=== PATIENT | female | born 1940 | race Caucasian/White ===

== ENCOUNTER → 2016-12-16 | Outpatient (CLI) | payer MEDICARE, BC, OTHER ==
[~2016-12-16] MED LIST: AMBIEN5 MG PO; AMLOPIDINE; ARAVA; CARVEDILOL; CELLCEPT; LISINOPRIL; TRAMADOL; ZOCOR; [UNRECOGNIZED DRUG - OTHER]
== END ==
LOC: MC.RAD 10:04
DX: Z12.31 Encounter for screening mammogram for malignant neoplasm of breast (principal); N64.89 Other specified disorders of breast

== ENCOUNTER 2018-01-16 10:07 | Day surgery (SDC) | payer MEDICARE, BC, OTHER ==
[2008-10-12 09:13] VITALS: BP 145/63
[~2018-01-16] VITALS: Ht 167.6 cm; Wt 61.7 kg
[2018-01-16 10:28] VITALS: BP 184/84; PULSE 81; TEMP 97.8
[2018-01-16] MEDS ORDERED: NORVASC 10MG10 MG PO (10:30)
[2018-01-16] MEDS ORDERED: ARAVA 20MG TABL20 MG PO (10:31)
[2018-01-16] MEDS ORDERED: COREG 25MG25 MG/TAB PO (10:31)
[2018-01-16] MEDS ORDERED: CELLCEPT 250MG250 MG PO (10:31)
[2018-01-16] MEDS ORDERED: XALATAN EYE DROPS OD (10:32)
[2018-01-16] MEDS ORDERED: SALAGEN 5MG TAB5 MG PO (10:32)
[2018-01-16] MEDS ORDERED: PRINIVIL10 MG PO (10:32)
[2018-01-16] MEDS ORDERED: RESTASIS MULTI5.5 ML OP (10:33)
[2018-01-16] MEDS ORDERED: PROGRAF 1MG1 MG PO (10:33)
[2018-01-16] MEDS ORDERED: ULTRAM 50MG TAB50 MG PO (10:34)
[2018-01-16] MEDS ORDERED: ZOCOR 20MG20 MG PO (10:34)
[2018-01-16] MEDS ORDERED: CRANBERRY500 M3 PO (10:35)
[2018-01-16] MEDS ORDERED: GLUCOSAMINE 1000 PO (10:35)
[2018-01-16] MEDS ORDERED: FLAX OIL1000 MG PO (10:35)
[2018-01-16] MEDS ORDERED: TYLENOL 8 HR PO (10:36)
[2018-01-16] MEDS ORDERED: TYLENOL PM EXTR1 TA1 PO (10:36)
[2018-01-16] MEDS ORDERED: MAGNESIUM250 M1 PO (10:36)
[2018-01-16] MEDS ORDERED: FOSAMAX 70MG TA70 MG PO (10:37)
[2018-01-16] MEDS ORDERED: VITAMIN D 1001000 IU PO (10:37)
[2018-01-16] MEDS ORDERED: NATURAL E400 IU PO (10:37)
[2018-01-16 12:50] VITALS: BP 145/66; PULSE 76
[2018-01-16 13:05] VITALS: BP 171/79; PULSE 79
[2018-01-16 13:20] VITALS: BP 162/83; PULSE 75
[2018-01-16 13:35] VITALS: BP 174/90; PULSE 78
== END 2018-01-16 13:55 | disposition home or self-care (01) ==
LOC: SDCO 10:07
DX: Z12.11 Encounter for screening for malignant neoplasm of colon (principal); K57.30 Diverticulosis of large intestine without perforation or abscess without bleeding; E78.00 Pure hypercholesterolemia, unspecified; I10 Essential (primary) hypertension; Z94.0 Kidney transplant status
CPT/HCPCS: J2250; J3010; J7030

== ENCOUNTER → 2018-01-19 | Outpatient (CLI) | payer MEDICARE, BC, OTHER ==
[~2018-01-19] MED LIST changes: +ARAVA 20MG TABL20 MG PO; +CELLCEPT 250MG250 MG PO; +COREG 25MG25 MG/TAB PO; +CRANBERRY500 M3 PO; +FLAX OIL1000 MG PO; +FOSAMAX 70MG TA70 MG PO; +GLUCOSAMINE 1000 PO; +MAGNESIUM250 M1 PO; +NATURAL E400 IU PO; +NORVASC 10MG10 MG PO; +PRINIVIL10 MG PO; +PROGRAF 1MG1 MG PO; +RESTASIS MULTI5.5 ML OP; +SALAGEN 5MG TAB5 MG PO; +TYLENOL 8 HR PO; +TYLENOL PM EXTR1 TA1 PO; +ULTRAM 50MG TAB50 MG PO; +VITAMIN D 1001000 IU PO; +XALATAN EYE DROPS OD; +ZOCOR 20MG20 MG PO
== END ==
LOC: MC.RAD 09:29
DX: Z12.31 Encounter for screening mammogram for malignant neoplasm of breast (principal); N64.89 Other specified disorders of breast

== ENCOUNTER → 2019-02-17 | Outpatient (CLI) | payer MEDICARE, BC, OTHER | LOC: COL.RAD 12:00 | DX: M48.061 Spinal stenosis, lumbar region without neurogenic claudication (principal); M47.816 Spondylosis without myelopathy or radiculopathy, lumbar region; M99.73 Connective tissue and disc stenosis of intervertebral foramina of lumbar region; Z98.1 Arthrodesis status ==

== ENCOUNTER → 2019-04-05 | Outpatient (CLI) | payer MEDICARE, BC, OTHER | LOC: MC.RAD 03-23 09:45 | DX: Z12.31 Encounter for screening mammogram for malignant neoplasm of breast (principal) ==

== ENCOUNTER → 2019-04-07 | Outpatient (CLI) | payer MEDICARE, BC, OTHER | LOC: MC.RAD 12:42 | DX: R92.2 Inconclusive mammogram (principal) | CPT/HCPCS: G0279 ==

== ENCOUNTER 2021-10-08 10:25 | Inpatient (IN) | payer MEDICARE, BC, OTHER ==
[2021-10-08] VITALS (10 sets, daily range): BP systolic 114–177; BP diastolic 47–93; PULSE 60–83; TEMP 94.8–97.8
[~2021-10-08] VITALS: Ht 167.6 cm; Wt 67.8 kg
[2021-10-08 10:51] LABS: BASO % 0.1 % (0.0-2.0); EOS % 0.3 % (0.0-4.0); GRAN # 8.2 K/mm3 (1.4-6.5); GRAN % 77.9 % (42.2-75.2); LYMPH # 1.3 K/mm3 (1.2-3.4); LYMPH % 12.7 % (20.0-51.0); MEAN CELL VOLUME 103 fl (80.0-100.0); MEAN CORPUSCULAR HGB CONC 31 g/dl (33.0-37.0); MEAN PLATELET VOLUME 11.8 fl (7.4-10.4); MONO # 0.9 K/mm3 (0.1-0.6); MONO % 8.4 % (1.7-9.3); PLATELET COUNT 157 K/mm3 (130-400); RED BLOOD COUNT 1.47 M/mm3 (4.10-5.30); REDCELL DISTRIBUTION WIDTH-CV 19.5 % (11.5-14.5)
[2021-10-08 10:53] LABS: MEAN CORPUSCULAR HEMOGLOBIN 31 pg (27-31)
[2021-10-08 10:54] LABS: HEMATOCRIT 15.1 % (37.0-47.0); HEMOGLOBIN 4.6 g/dl (12.5-16.0)
[2021-10-08 11:01] LABS: INR 1.1 (0.8-3.0); PROTHROMBIN TIME 12.7 SECONDS (9.7-12.8)
[2021-10-08 11:10] LABS: ALBUMIN 2.9 gm/dL (3.4-4.8); BILIRUBIN,TOTAL 0.2 mg/dL (0.2-1.2); CALCIUM 7.5 mg/dL (8.4-10.2); CREATININE, serum 3.31 mg/dL (0.57-1.11); POTASSIUM 5.4 mmol/L (3.5-4.5); TOTAL PROTEIN 5.4 gm/dL (6.2-8.1)
[2021-10-08] MEDS ORDERED: ARAVA 20MG TABL20 MG PO (11:35)
[2021-10-08] MEDS ORDERED: PROCARDIA XL 3030 MG PO (11:35)
[2021-10-08] MEDS ORDERED: CELLCEPT 250MG250 MG PO (11:36)
[2021-10-08] MEDS ORDERED: COREG 25MG25 MG/TAB PO (11:36)
[2021-10-08] MEDS ORDERED: SALAGEN 5MG TAB5 MG PO (11:37)
[2021-10-08] MEDS ORDERED: PRINIVIL40 MG PO (11:37)
[2021-10-08] MEDS ORDERED: ULTRAM 50MG TAB50 MG PO (11:38)
[2021-10-08] MEDS ORDERED: ZOCOR 20MG20 MG PO (11:38)
[2021-10-08] MEDS ORDERED: PROGRAF 1MG1 MG PO (11:38)
[2021-10-08] MEDS ORDERED: ACTONEL150 MG PO (11:40)
[2021-10-08] MEDS ORDERED: LOMOTIL 0.025 M1 TAB PO (11:41)
[2021-10-08] MEDS ORDERED: RESTASIS MULTI5.5 ML OP (11:41)
[2021-10-08] MEDS ORDERED: XALATAN EYE DROPS OD (11:41)
[2021-10-08] MEDS ORDERED: COSOPT 2%-0.5%10 ML OU (11:42)
[2021-10-08] MEDS ORDERED: MAGNESIUM250 M1 PO (11:42)
[2021-10-08] MEDS ORDERED: FLAXSEED OIL1000 MG PO (11:42)
[2021-10-08] MEDS ORDERED: TYLENOL 8 HR PO (11:42)
[2021-10-08] MEDS ORDERED: NATURAL E400 IU PO (11:43)
[2021-10-08] MEDS ORDERED: VITAMIN D31000 IU PO (11:43)
[2021-10-08] MEDS ORDERED: TYLENOL PM EXTR1 TA1 PO (11:43)
[2021-10-08] MEDS ORDERED: PRESERVISION1 SGL PO (11:44)
--- NOTE | 2021-10-08 15:04 | NUR ---
PT ADMITTED TO UNIT. ADMISSION INTAKE AND ASSESSMENT COMPLETED. ORIENTED PT TO ROOM. FIRST UNIT OF [facility] ADMINISTERED, SECOND UNIT INFUSING AT THIS TIME. DENIES ANY PAIN AT THIS TIME. PT DOES APPEAR VERY PALE AND LETHARGIC. ANSWERS QUESTIONS APPROPRIATELY, FOLLOWS COMMANDS. WILL CONTINUE TO MONITOR.
--- NOTE | 2021-10-08 15:10 | NUR ---
PT TEMPERATURE LOW AT 95 DEGREES. MULTIPLE WARM BLANKETS PLACED ON PT AND WILL CONTINUE TO MONITOR.
[2021-10-08 17:24] LABS: HEMATOCRIT 26.6 % (37.0-47.0); HEMOGLOBIN 8.7 g/dl (12.5-16.0)
--- NOTE | 2021-10-08 17:28 | NUR ---
TELE NOTIFIED THIS RN THAT PT APPEARED TO BE IN AFIB. DR. MON NOTIFIED, INSTRUCTED TO OBTAIN EKG AND GIVEN COREG ORDERED. WILL CONTINUE TO MONITOR.
[2021-10-08 17:31] LABS: POTASSIUM 5.4 mmol/L (3.5-4.5)
[2021-10-08 17:42] LABS: PHOSPHOROUS 8.2 mg/dL (2.3-4.7); URIC ACID 7.9 mg/dL (2.6-6.0)
[2021-10-08 21:57] LABS: HEMATOCRIT 25.7 % (37.0-47.0); HEMOGLOBIN 8.5 g/dl (12.5-16.0)
--- NOTE | 2021-10-08 22:58 | NUR ---
Pt telemetry was not picking up, checked leads with no change. New leads applied. Telemetry reading appropriately now. PT doing well with no complaints or needs. Call light within reach, bed alarm on
--- NOTE | 2021-10-09 01:24 | NUR ---
Report recieved from ALIYAH Perry. Patient resting in bed. No acute distress noted. Will continue to monitor.
[2021-10-09 04:15] VITALS: BP 180/65; PULSE 61; TEMP 97.8
[2021-10-09 05:17] VITALS: BP 158/60; PULSE 58
--- NOTE | 2021-10-09 05:17 | NUR ---
Patient had high BP of 180/65, HR 61 around 4 am. Patient asymptomatic. Denies chest pain, headache or dizziness. PRN hydralazine given. BP recheck was 158/60 around 5am. Call light in reach. Will continue to monitor.
[2021-10-09 06:20] LABS: BASO % 0.2 % (0.0-2.0); EOS # 0.1 K/mm3 (0.0-0.7); EOS % 0.5 % (0.0-4.0); GRAN # 9.3 K/mm3 (1.4-6.5); GRAN % 76.7 % (42.2-75.2); LYMPH # 1.3 K/mm3 (1.2-3.4); LYMPH % 10.8 % (20.0-51.0); MEAN CORPUSCULAR HGB CONC 33 g/dl (33.0-37.0); MEAN PLATELET VOLUME 11.7 fl (7.4-10.4); MONO # 1.3 K/mm3 (0.1-0.6); PLATELET COUNT 148 K/mm3 (130-400); REDCELL DISTRIBUTION WIDTH-CV 17.5 % (11.5-14.5)
[2021-10-09 06:24] LABS: HEMATOCRIT 25.7 % (37.0-47.0); HEMOGLOBIN 8.5 g/dl (12.5-16.0); MEAN CELL VOLUME 92 fl (80.0-100.0); MEAN CORPUSCULAR HEMOGLOBIN 30 pg (27-31)
[2021-10-09 06:45] LABS: ALBUMIN 2.8 gm/dL (3.4-4.8); CALCIUM 7.6 mg/dL (8.4-10.2); CREATININE, serum 3.65 mg/dL (0.57-1.11); MAGNESIUM 3.2 mg/dL (1.6-2.6); POTASSIUM 5.2 mmol/L (3.5-4.5)
[2021-10-09 07:45] VITALS: BP 185/54; PULSE 66; TEMP 79.9; TEMP 97.9
--- NOTE | 2021-10-09 09:30 | NUR ---
ANKITA met with the patient, her (Luc, ph#[phone]), and daughter (Elana) to discuss discharge plan. The patient lives in [place] with her . She states that these last few days she has been needing assistance with ADLs and has a cane, two rollators, and an electric scooter. The patient's PCP is Dr. Debra Zuleta and she receives her medications from [facility]. The patient does not have a DPOA-HC, but she states that she does have one completed and that it designates her . The patient plans on returning home with her upon discharge. PT/OT have been ordered. SW to continue to monitor. *Discharge plan: home with , pending PT/OT recs*
--- NOTE | 2021-10-09 09:30 | NUR ---
PT SITTING UP IN BED. MORNING MEDICATIONS GIVEN. SHIFT ASSESSMENT COMPLETED. AND DAUGHTER AT BEDSIDE. PT DENIES ANY ABDOMINAL PAIN. SCABS NOTED TO NOSE, PT STATES IT IS SKIN CANCER THAT IS BEING TREATED. DISCUSSED POC WITH FAMILY. CONSENT FOR PROCEDURE SIGNED AND PLACED ON CHART. WILL CONTINUE TO MONITOR.
--- NOTE | 2021-10-09 10:48 | NUR ---
First visit from the scrap preparer. [employer] spoke with family. No needs right now.
[2021-10-09 13:09] LABS: HEMATOCRIT 26.4 % (37.0-47.0); HEMOGLOBIN 8.6 g/dl (12.5-16.0)
[2021-10-09 16:15] VITALS: BP 149/49; PULSE 57; TEMP 97.9
[2021-10-09 19:39] VITALS: BP 154/43; PULSE 62; TEMP 97.5
[2021-10-09 21:24] LABS: HEMOGLOBIN 8.5 g/dl (12.5-16.0)
[2021-10-09 21:25] LABS: HEMATOCRIT 26.1 % (37.0-47.0)
[2021-10-09 23:59] VITALS: BP 132/58; PULSE 63; TEMP 97.4
[2021-10-10] VITALS (13 sets, daily range): BP systolic 108–163; BP diastolic 30–142; PULSE 57–72; TEMP 97.4–98.5
[2021-10-10 06:16] LABS: BASO % 0.3 % (0.0-2.0); EOS # 0.2 K/mm3 (0.0-0.7); EOS % 1.6 % (0.0-4.0); GRAN # 6.8 K/mm3 (1.4-6.5); LYMPH # 1.3 K/mm3 (1.2-3.4); LYMPH % 13.3 % (20.0-51.0); MEAN CELL VOLUME 95 fl (80.0-100.0); MEAN CORPUSCULAR HGB CONC 32 g/dl (33.0-37.0); MEAN PLATELET VOLUME 11.4 fl (7.4-10.4); MONO # 1.2 K/mm3 (0.1-0.6); MONO % 12.2 % (1.7-9.3); PLATELET COUNT 139 K/mm3 (130-400); REDCELL DISTRIBUTION WIDTH-CV 18.6 % (11.5-14.5)
[2021-10-10 06:19] LABS: HEMATOCRIT 23.7 % (37.0-47.0); HEMOGLOBIN 7.6 g/dl (12.5-16.0); MEAN CORPUSCULAR HEMOGLOBIN 30 pg (27-31)
[2021-10-10 06:26] LABS: ALBUMIN 2.5 gm/dL (3.4-4.8); CALCIUM 7.2 mg/dL (8.4-10.2); CREATININE, serum 3.99 mg/dL (0.57-1.11); PHOSPHOROUS 8.2 mg/dL (2.3-4.7); POTASSIUM 4.7 mmol/L (3.5-4.5)
--- NOTE | 2021-10-10 08:15 | NUR ---
Patient arrived back to floor from EGD/Colonoscopy at approx. 0800. Patient A&Ox4 and SBA w/ walker. Walked from OR cart to room bed w/o difficulty. Came up on 3L O2 via NC d/t difficulty maintaining sats on RA. O2 sats were 95%, titrated down to 2L via NC. Patient on post-op VS for the next hour or 2, as long as VSS. Patient denies any concerns at this time. Call light is w/in reach. Patient instructed to call if any needs arise.
--- NOTE | 2021-10-10 10:03 | NUR ---
OT is recommending post-acute rehab. PT is recommending home with HH is able. ANKITA met with the patient, her , and daughter to review their recommendation. The patient is open to rehab and states that she has been to [facility] in the past after a broken hip. The patient preferred 1) [facility] 2) [facility]. The patient's and daughter are supportive of her decision. ANKITA notified Lamar at [facility]. SW student faxed a referral to [facility]. ANKITA consulted [facility] Director. Awaiting screens. *Discharge plan: post-acute rehab*
[2021-10-10 12:07] LABS: HEMATOCRIT 23.8 % (37.0-47.0); HEMOGLOBIN 7.5 g/dl (12.5-16.0)
--- NOTE | 2021-10-10 19:18 | NUR ---
Patient has done well today and has not expressed any concerns. IV in the left wrist was leaking and went bad, ecchymosis and tenderness present at the site. New IV started by Clara, in the right forearm. IV fluids infusing as ordered.
[2021-10-11 04:00] VITALS: BP 107/44; PULSE 59; TEMP 97.7
[2021-10-11 05:42] LABS: COLLECTION METHOD CLEAN CATCH
[2021-10-11 05:52] LABS: MUCOUS Present (NOT PRESENT); PH 5 (5-8); URINE APPEARANCE Turbid (CLEAR/HAZY); URINE BACTERIA Many /hpf (NONE SEEN); URINE BILIRUBIN Negative (NEGATIVE); URINE BLOOD 1+ (NEGATIVE); URINE COLOR Amber (YELLOW); URINE GLUCOSE Negative (NEGATIVE); URINE KETONE Negative (NEGATIVE); URINE LEUKOCYTE ESTERASE 3+ (NEGATIVE); URINE NITRATE Negative (NEGATIVE); URINE PROTEIN(semi-quant) 2+ (NEGATIVE); URINE RBC 20-50 /hpf (0-2); URINE UROBILINOGEN Negative (NEGATIVE)
--- NOTE | 2021-10-11 06:21 | NUR ---
UPON ASSESSMENT, THIS NURSE NOTED PATIENTS LABIA IS SWOLLEN AND HER SKIN CREASES ARE EXCORIATED. LABIA CLEANED AND BARRIER CREAM APPLIED TO CREASES. PATIENT DENIED ANY PAIN OR DISCOMFORT WHILE CLEANING OR APPLYING CREAM. NO OTHER ISSUES NOTED OR REPORTED BY PATIENT THROUGHOUT THE NIGHT.
[2021-10-11 06:33] LABS: BASO % 0.4 % (0.0-2.0); EOS # 0.1 K/mm3 (0.0-0.7); EOS % 1.5 % (0.0-4.0); LYMPH # 0.8 K/mm3 (1.2-3.4); MEAN CELL VOLUME 94 fl (80.0-100.0); MEAN CORPUSCULAR HGB CONC 32 g/dl (33.0-37.0); MEAN PLATELET VOLUME 11.3 fl (7.4-10.4); MONO # 0.9 K/mm3 (0.1-0.6); MONO % 11.5 % (1.7-9.3); PLATELET COUNT 125 K/mm3 (130-400); REDCELL DISTRIBUTION WIDTH-CV 18.6 % (11.5-14.5)
[2021-10-11 06:39] LABS: HEMATOCRIT 22.5 % (37.0-47.0); HEMOGLOBIN 7.3 g/dl (12.5-16.0); MEAN CORPUSCULAR HEMOGLOBIN 30 pg (27-31)
[2021-10-11 06:54] LABS: ALBUMIN 2.4 gm/dL (3.4-4.8); CALCIUM 7.5 mg/dL (8.4-10.2); CREATININE, serum 4.05 mg/dL (0.57-1.11); MAGNESIUM 2.9 mg/dL (1.6-2.6); PHOSPHOROUS 7.8 mg/dL (2.3-4.7); POTASSIUM 4.7 mmol/L (3.5-4.5)
[2021-10-11 07:54] VITALS: BP 110/50; PULSE 60; TEMP 97.6
--- NOTE | 2021-10-11 09:15 | NUR ---
Patient assisted to the BSC by this RN, did have an episode incontinent stool. External genitalia is slightly swollen, but nontender. Patient did have bleeding from rectum, blood was bright red. Patient denied any pain.
[2021-10-11 12:10] VITALS: BP 120/52; PULSE 62; TEMP 97.7
--- NOTE | 2021-10-11 12:58 | NUR ---
ANKITA left a message with Lamar at [facility] inquiring if they can accept the patient. ANKITA faxed Lamar updates. [facility] is interested in the patient. SW to continue to follow. *Discharge plan: SNF or [facility]. Awaiting screens*
--- NOTE | 2021-10-11 15:10 | NUR ---
Lamar, at [facility], states that they are able to accept the patient, but would not be able to take her until Friday, due to her being a new admit and they are unable to get meds over the weekend.
[2021-10-11 16:00] VITALS: BP 124/43; PULSE 58; TEMP 97.6
--- NOTE | 2021-10-11 18:10 | NUR ---
Patient has done well today; did c/o slight pain in her bottom, PRN tylenol administered. Otherwise, patient has been resting all day. Daughter and have been at the bedside.
[2021-10-11 19:48] VITALS: BP 132/44; PULSE 55; TEMP 97.6
--- NOTE | 2021-10-11 20:30 | NUR ---
Patient is resting in bed, alert and oriented x4. Denies pain. Telemetry in place, SNR, HR higher 50's. Receiving 100ml/hr NS. 1 L O2 NC. Assessment completed, medications provided. No other needs at this time. Call [employer].
[2021-10-12] VITALS (7 sets, daily range): BP systolic 116–151; BP diastolic 36–61; PULSE 55–71; TEMP 97.4–98
[2021-10-12 05:45] LABS: BASO % 0.3 % (0.0-2.0); EOS # 0.2 K/mm3 (0.0-0.7); EOS % 2.5 % (0.0-4.0); GRAN # 5.5 K/mm3 (1.4-6.5); GRAN % 73.2 % (42.2-75.2); LYMPH # 0.6 K/mm3 (1.2-3.4); LYMPH % 8.1 % (20.0-51.0); MEAN CELL VOLUME 98 fl (80.0-100.0); MEAN CORPUSCULAR HGB CONC 32 g/dl (33.0-37.0); MEAN PLATELET VOLUME 11.1 fl (7.4-10.4); MONO # 1.2 K/mm3 (0.1-0.6); MONO % 15.6 % (1.7-9.3); PLATELET COUNT 121 K/mm3 (130-400); RED BLOOD COUNT 2.29 M/mm3 (4.10-5.30); REDCELL DISTRIBUTION WIDTH-CV 18.9 % (11.5-14.5)
[2021-10-12 05:51] LABS: HEMATOCRIT 22.5 % (37.0-47.0); HEMOGLOBIN 7.2 g/dl (12.5-16.0); MEAN CORPUSCULAR HEMOGLOBIN 31 pg (27-31)
[2021-10-12 06:03] LABS: ALBUMIN 2.2 gm/dL (3.4-4.8); CALCIUM 7.5 mg/dL (8.4-10.2); CREATININE, serum 4.27 mg/dL (0.57-1.11); MAGNESIUM 2.9 mg/dL (1.6-2.6); PHOSPHOROUS 7.2 mg/dL (2.3-4.7); POTASSIUM 4.8 mmol/L (3.5-4.5)
--- NOTE | 2021-10-12 06:19 | NUR ---
Pt has had an uneventful night, VSS. Unable to collect UA. Continue receiving NS 100 ML/HR. Report will be given to day RN.
--- NOTE | 2021-10-12 13:47 | NUR ---
ANKITA met with the patient and her family to update on referrals. The patient states that she is open to going to [facility] this weekend, if she is able to discharge before Friday, this is when [facility] can accept. The patient's family is in agreement to the plan. *Discharge plan: [facility] or [facility]*
[2021-10-12 21:19] LABS: CREATININE, serum 4.26 mg/dL (0.57-1.11); SODIUM 133 mmol/L (136-145)
--- NOTE | 2021-10-12 22:00 | NUR ---
Patient is resting in bed, alert and oriented x 4, complains of some pain in her hip, tylenol provided. Telemetry in place, bradycardic and irregular. 1L O2 NC. Receiving 100ml/hr NS. Assessment completed, medications provided. No other needs at this time. Call light within reach.
[2021-10-13 05:16] VITALS: BP 111/44; PULSE 52; TEMP 97.3
--- NOTE | 2021-10-13 07:20 | NUR ---
Patient had a calm night. She continue getting NS. No other needs. Report given to day shift nurse.
[2021-10-13 07:38] VITALS: BP 133/52; PULSE 58; TEMP 97.5
[2021-10-13 07:51] LABS: BASO % 0.4 % (0.0-2.0); EOS # 0.2 K/mm3 (0.0-0.7); EOS % 3.3 % (0.0-4.0); GRAN # 4.7 K/mm3 (1.4-6.5); GRAN % 67.8 % (42.2-75.2); LYMPH # 0.8 K/mm3 (1.2-3.4); LYMPH % 11.3 % (20.0-51.0); MEAN CELL VOLUME 98 fl (80.0-100.0); MEAN CORPUSCULAR HGB CONC 32 g/dl (33.0-37.0); MEAN PLATELET VOLUME 11.6 fl (7.4-10.4); MONO # 1.2 K/mm3 (0.1-0.6); MONO % 16.9 % (1.7-9.3); PLATELET COUNT 129 K/mm3 (130-400); REDCELL DISTRIBUTION WIDTH-CV 19.4 % (11.5-14.5)
[2021-10-13 07:53] LABS: HEMATOCRIT 22.5 % (37.0-47.0); HEMOGLOBIN 7.2 g/dl (12.5-16.0); MEAN CORPUSCULAR HEMOGLOBIN 31 pg (27-31)
[2021-10-13 08:08] LABS: ALBUMIN 2.1 gm/dL (3.4-4.8); CALCIUM 7.5 mg/dL (8.4-10.2); CREATININE, serum 4.53 mg/dL (0.57-1.11); MAGNESIUM 2.9 mg/dL (1.6-2.6); PHOSPHOROUS 7.2 mg/dL (2.3-4.7)
[2021-10-13 11:07] VITALS: BP 136/38; PULSE 56; TEMP 97.4
[2021-10-13 15:45] VITALS: BP 125/49; PULSE 58; TEMP 16
[2021-10-13 20:00] VITALS: BP 121/51; PULSE 54; TEMP 98.4
[2021-10-14] VITALS (7 sets, daily range): BP systolic 120–145; BP diastolic 28–75; PULSE 53–107; TEMP 97.3–97.7
--- NOTE | 2021-10-14 06:36 | NUR ---
ASSUMED CARE OF PATIENT AFTER RECEIVING BEDSIDE REPORT. ASSESSMENT COMPLETED, VSS. PATIENT DENIES PAIN, QUESTIONS OR CONCERNS. NO ACUTE EVENTS OVERNIGHT. BEDSIDE REPORT TO BE GIVEN TO ONCOMING SHIFT
[2021-10-14 07:02] LABS: BASO % 0.4 % (0.0-2.0); EOS # 0.3 K/mm3 (0.0-0.7); EOS % 3.1 % (0.0-4.0); GRAN # 5.6 K/mm3 (1.4-6.5); GRAN % 69.7 % (42.2-75.2); LYMPH # 0.8 K/mm3 (1.2-3.4); LYMPH % 9.3 % (20.0-51.0); MEAN CELL VOLUME 100 fl (80.0-100.0); MEAN CORPUSCULAR HGB CONC 31 g/dl (33.0-37.0); MEAN PLATELET VOLUME 11.3 fl (7.4-10.4); MONO # 1.4 K/mm3 (0.1-0.6); PLATELET COUNT 143 K/mm3 (130-400); RED BLOOD COUNT 2.41 M/mm3 (4.10-5.30); REDCELL DISTRIBUTION WIDTH-CV 19.5 % (11.5-14.5)
[2021-10-14 07:07] LABS: HEMOGLOBIN 7.5 g/dl (12.5-16.0); MEAN CORPUSCULAR HEMOGLOBIN 31 pg (27-31)
[2021-10-14 07:17] LABS: CALCIUM 7.5 mg/dL (8.4-10.2); CREATININE, serum 4.56 mg/dL (0.57-1.11); POTASSIUM 5.1 mmol/L (3.5-4.5)
--- NOTE | 2021-10-14 07:56 | NUR ---
CRITICAL CO2 REPORTED TO DR. GONCALVES
--- NOTE | 2021-10-14 08:15 | NUR ---
PT LAYING SUPINE IN BED ON ROOM AIR. PT STATES THAT SHE NEEDS TO GET UP AND GO TO THE BATHROOM. PT STATES THAT SHE DOES NOT FEEL THAT SHE CAN WALK ALL THE WAY TO THE BATHROOM SO THE BEDSIDE POTTY WAS GOTTEN FOR HER. PT WAS ABLE TO HAVE A LARGE BM. NO BLOOD WAS SEEN IN STOOL. PT STATES NO SOB AT THIS TIME. PT STATES "IM JUST HAVE MY NORMAL ACHES ALL OVER." PT WAS ASSITED FROM THE POTTY TO CHAIR BY PHYSICAL THERAPY. PT STATES NO OTHER NEEDS AT THIS TIME. CALL LIGHT IS WITHIN REACH.
--- NOTE | 2021-10-14 18:10 | NUR ---
PT LAYING SUPINE IN BED ON ROOM AIR ASLEEP. PT STATES THAT HE IS VERY TIRED. "I DIDNT GET MUCH SLEEP LAST NIGHT." PT STATES NO PAIN OR NO NEEDS AT THIS TIME. CALL LIGHT IS WITHIN REACH.
--- NOTE | 2021-10-14 21:52 | NUR ---
Patient resting in bed with eyes closed. Patient awakes easily with voice and touch. Patient states she is feeling very tired since she didn't get much sleep last night. Patient denies SOB or dyspnea. Patient states having some lower back pain and requesting Tylenol. PRN Tylenol given per request. All scheduled meds given per MAR. Patient took the medications without difficulty. Helped patient to reposition. Call light in reach. Will continue to monitor.
[2021-10-15 03:37] VITALS: BP 121/43; PULSE 58; TEMP 97.4
[2021-10-15 06:38] LABS: BASO % 0.4 % (0.0-2.0); EOS # 0.2 K/mm3 (0.0-0.7); EOS % 2.5 % (0.0-4.0); GRAN # 5.7 K/mm3 (1.4-6.5); GRAN % 70.2 % (42.2-75.2); LYMPH % 12.1 % (20.0-51.0); MEAN CELL VOLUME 98 fl (80.0-100.0); MEAN CORPUSCULAR HGB CONC 32 g/dl (33.0-37.0); MEAN PLATELET VOLUME 11.7 fl (7.4-10.4); MONO # 1.2 K/mm3 (0.1-0.6); MONO % 14.6 % (1.7-9.3); PLATELET COUNT 150 K/mm3 (130-400); RED BLOOD COUNT 2.48 M/mm3 (4.10-5.30); REDCELL DISTRIBUTION WIDTH-CV 19.2 % (11.5-14.5)
[2021-10-15 06:47] LABS: HEMATOCRIT 24.4 % (37.0-47.0); HEMOGLOBIN 7.7 g/dl (12.5-16.0); MEAN CORPUSCULAR HEMOGLOBIN 31 pg (27-31)
[2021-10-15 06:51] LABS: CALCIUM 7.9 mg/dL (8.4-10.2); CREATININE, serum 4.98 mg/dL (0.57-1.11); POTASSIUM 5.1 mmol/L (3.5-4.5)
[2021-10-15 07:26] VITALS: BP 141/45; PULSE 61; TEMP 98
--- NOTE | 2021-10-15 09:23 | NUR ---
PT SITTING UP ON SIDE OF BED WORKING WITH PHYSICAL THERAPY. PT ON 1 LIT VIA NC. PT STATES THAT SHE "DIDNT GET A LOT OF REST LAST NIGHT, IM SO TIRED." PT STATES NO NEEDS AT THIS TIME. PHYSICAL THERAPY TO WORK WITH PT.
[2021-10-15 11:16] VITALS: BP 137/50; PULSE 52
[2021-10-15 15:20] VITALS: BP 136/62; PULSE 103; TEMP 97.3
--- NOTE | 2021-10-15 16:37 | NUR ---
CALLED REPORT TO ANJELICA AT [facility]. ALL QUESTIONS WERE ANSWERED.
== END 2021-10-15 16:26 | disposition short-term general hospital (02) | DRG 377 ==
LOC: COL.ER 10:25 → MEDICAL 11:23
PROVIDERS: Internal Medicine Gastroenterology; Physician Assistant; Registered Nurse; Student in an Organized Health Care Education/Training Program; ADMIT Internal Medicine
PROC: 30233N1 Transfusion of Nonautologous Red Blood Cells into Peripheral Vein, Percutaneous Approach (ICD-10-PCS; 2021-10-09)
PROC: 0DJD8ZZ Inspection of Lower Intestinal Tract, Via Natural or Artificial Opening Endoscopic (ICD-10-PCS; principal; 2021-10-10 07:00)
PROC: 0DJ08ZZ Inspection of Upper Intestinal Tract, Via Natural or Artificial Opening Endoscopic (ICD-10-PCS; 2021-10-10 07:00)
DX: K55.21 Angiodysplasia of colon with hemorrhage (principal); N18.6 End stage renal disease; Z94.0 Kidney transplant status; I12.0 Hypertensive chronic kidney disease with stage 5 chronic kidney disease or end stage renal disease; N17.9 Acute kidney failure, unspecified; E87.2 Acidosis; D62 Acute posthemorrhagic anemia; N39.0 Urinary tract infection, site not specified; K57.31 Diverticulosis of large intestine without perforation or abscess with bleeding; K29.71 Gastritis, unspecified, with bleeding; I77.1 Stricture of artery; I08.1 Rheumatic disorders of both mitral and tricuspid valves; E83.39 Other disorders of phosphorus metabolism; D63.1 Anemia in chronic kidney disease; I95.9 Hypotension, unspecified; K64.8 Other hemorrhoids; M81.0 Age-related osteoporosis without current pathological fracture; E87.5 Hyperkalemia; M35.00 Sjogren syndrome, unspecified; M06.9 Rheumatoid arthritis, unspecified; E78.5 Hyperlipidemia, unspecified; Z79.891 Long term (current) use of opiate analgesic; Z79.899 Other long term (current) drug therapy
CPT/HCPCS: 99223-AI; 99233-AI; 99239; A9562; C9113; J0696; J1756; J1940; J2405; J2704; J2765; J7030; J7050; J7120; J7507; J7517; P9016